=== PATIENT | female | born 1995 | race Caucasian/White ===

== ENCOUNTER → 2017-01-11 13:02 | Outpatient (CLI) | payer MEDICAID | END | disposition home or self-care (01) | LOC: D.US 13:00 | DX: N28.9 Disorder of kidney and ureter, unspecified (principal) ==

== ENCOUNTER → 2018-10-15 08:22 | Outpatient (CLI) | payer MEDICAID ==
[~2018-10-15 08:22] MED LIST: HYDROCODON-ACE1 EAC7 PO
[2018-11-05 06:41] VITALS: BMI 39.9
== END | disposition home or self-care (01) ==
LOC: D.NM 08:22
PROVIDERS: ATTEND Family Medicine
DX: R10.11 Right upper quadrant pain (principal)

== ENCOUNTER 2018-11-05 06:00 | Day surgery (SDC) | payer MEDICAID ==
[2018-11-04 15:18] LABS: HEMATOCRIT 41.5 % (36.0-48.0); HEMOGLOBIN 14.1 g/dL (12-16); MCH 30.4 pg (26.0-34.0); MCV 89.4 fL (80.0-100.0); MEAN PLATELET VOLUME 9.7 fL (7.4-10.4); RBC 4.64 10x6/uL (4.00-5.40); RDW 12.8 % (11.5-14.5); WBC 11.2 10x3/uL (4.8-10.8)
[~2018-11-05] VITALS: Ht 162.6 cm; Wt 105.5 kg
[2018-11-05 06:41] VITALS: BP 146/81; Ht 162.6 cm; Wt 105.5 kg
[2018-11-05 06:57] LABS: HCG URINE NEGATIVE (NEGATIVE)
[2018-11-05] MEDS ORDERED: HYDROCODON-ACE1 EAC7 PO (08:52)
--- NOTE | 2018-11-05 10:06 | NUR ---
0938-REC'D FROM RR. DROWSY,EASILY AROUSED WITH VERBAL STIMULI. STERI STRIPS INTACT TO ABD IN 4 AREAS.VSS.NO DISTRESS FAMILY AT BEDSIDE, CL IN EASY REACH.
--- NOTE | 2018-11-05 10:07 | NUR ---
0945-FULL LIQUID TRAY TO ROOM. DENIES COMPLAINTS.FAMILY AT BEDSIDE
--- NOTE | 2018-11-05 11:56 | NUR ---
1100:DISCHARGE CRITERIA MET. IV REMOVED FROM LEFT HAND WITH CATH INTACT. DISPOSED INTO SHARPS,COVERED SITE WITH BANDAID. ABLE TO URINATE WITHOUT DIFFICULTIES. REVIEWED DISCHARGE INSTRUCTIONS WITH PT AND FAMILY AT BEDSIDE.VERBALIZED UNDERSTANDING WITHOUT QUESTIONS OR CONCERNS. ESCORTED OUT VIA W/C WITH FAMILY DRIVING HOME. DISCHARGE PAPERWORK IN HAND
== END 2018-11-05 11:00 | disposition home or self-care (01) ==
LOC: D.OPS 06:00
PROVIDERS: Anesthesiology; ATTEND Surgery
DX: K81.1 Chronic cholecystitis (principal); I10 Essential (primary) hypertension; E66.01 Morbid (severe) obesity due to excess calories; Z01.812 Encounter for preprocedural laboratory examination

== ENCOUNTER 2020-07-19 13:55 | Emergency (ER) | payer BC ==
[~2020-07-19] VITALS: Ht 162.6 cm; Wt 109.1 kg
[2020-07-19 14:18] VITALS: BP 143/86; Ht 162.6 cm; Wt 109.1 kg
[2020-07-19] MEDS ORDERED: DICLOFENAC SODI50 MG PO (14:38)
== END 2020-07-19 14:46 | disposition home or self-care (01) ==
LOC: D.ER 13:55
DX: S63.502A Unspecified sprain of left wrist, initial encounter (principal); W18.30XA Fall on same level, unspecified, initial encounter; Y93.9 Activity, unspecified; Y92.9 Unspecified place or not applicable; M25.532 Pain in left wrist